=== PATIENT | male | born 1940 | race Hispanic/Latino ===

== ENCOUNTER 2016-10-30 10:17 | Emergency (ER) | payer MEDICARE, MEDICAID ==
[2016-10-30 10:32] LABS: Hemoglobin 13.2 g/dL (14.0-18.0); Mean Corpuscular HGB CONC 33.4 g/dL (32.0-36.0); Mean Corpuscular Hemoglobin 32.8 pg (27.0-31.0); Mean Corpuscular Volume 98.4 fl (80.0-94.0); Mean Platelet Volume 7.4 fL (7.4-10.4); Platelet Count 163 thou/uL (130-400); RBC Distribution Width 12.8 % (11.5-14.5); Red Blood Cell (RBC) Count 4.02 mill/uL (4.70-6.10); White Blood Cell (WBC) Count 6.6 thou/uL (4.8-10.8)
[2016-10-30 10:35] LABS: Band 4 % (5-11); Lymphocytes 13 % (21-51); MDiff Complete? YES; Manual Diff?? YES; Monocytes 6 % (0-10); Neutrophil 77 % (42-75)
[2016-10-30 10:36] LABS: Anisocytosis SLIGHT = 6-15 cells (100X) (0-5/hpf); PLT Morphology Comment Appears Adequate; PTT 34.9 SEC (22.9-36.1); Prothrombin Time 13.6 SEC (12.0-14.7)
[2016-10-30 10:45] LABS: CKMB 0.5 ng/mL (0-6.6); Calcium 8.7 mg/dL (7.8-10.44); Chloride 107 mmol/L (98-107); Potassium 4.5 mmol/L (3.5-5.1); Sodium 140 mmol/L (136-145); Troponin I Less than 0.010 ng/mL (< 0.028)
[2016-10-30 10:57] LABS: ALT (SGPT) 15 U/L (8-55); AST (SGOT) 14 U/L (5-34); Albumin 3.9 g/dL (3.4-4.8); Alkaline Phosphatase 123 U/L (40-150); Anion Gap 17 mmol/L (10-20); BUN (Urea Nitrogen) 12 mg/dL (8.4-25.7); Bilirubin, Total 0.7 mg/dL (0.2-1.2); Calc. Creatinine Clearance 0 mL/min (70-130); Carbon Dioxide 21 mmol/L (23-31); Estimated GFR-MDRD 84; Glucose 136 mg/dL (83-110); Protein, Total 6.9 g/dL (5.8-8.1)
--- NOTE | 2016-10-30 11:01 | CT ---
CT BRAIN WITHOUT CONTRAST: Date: 10/30/16 HISTORY: Aphasia. 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 No acute infarct, hemorrhage, midline shift, or abnormal extra-ax ial fluid collections are seen. The ventricular size is appropriate and the basilar cisterns are pat ent. The bony calvarium is intact. The visualized paranasal sinuses are well aerated. IMPRESSION: No CT evidence of acute intracranial process. Discussed over the telephone with ER physician, Dr. Eliecer Caldwell, at 1030 hours. CODE CR. POS: [id number]
--- NOTE | 2016-10-30 11:05 | RAD ---
PORTABLE CHEST 1 VIEW: DATE: 10/30/16. TIME: 10:20 a.m. HISTORY: Altered mental status. FINDINGS: The heart size is normal. The lungs are expanded without focal areas of consolidation, pneumothorax , or pleural effusions. IMPRESSION: No radiographic evidence of acute cardiopulmonary process. POS: [facility]
== END 2016-10-30 11:18 | disposition short-term general hospital (02) ==
LOC: MADERS 10:17
DX: I63.9 Cerebral infarction, unspecified (principal); R47.01 Aphasia; I10 Essential (primary) hypertension; E11.9 Type 2 diabetes mellitus without complications; E78.5 Hyperlipidemia, unspecified; Z79.899 Other long term (current) drug therapy; Z79.84 Long term (current) use of oral hypoglycemic drugs
CPT/HCPCS: 36416; 70450; 71010; 80053; 82553; 84484; 85025; 85610; 85730; 93005; 94760

== ENCOUNTER 2018-03-15 14:34 | Outpatient (CLI) | payer MEDICARE, MEDICAID | END 2018-03-15 14:35 | disposition home or self-care (01) | LOC: MADLAB 14:34 | PROVIDERS: ATTEND Family Medicine | DX: J02.9 Acute pharyngitis, unspecified (principal); R49.0 Dysphonia; R50.9 Fever, unspecified | CPT/HCPCS: 87430; 87804 ==